=== PATIENT | male | born 2000 | race Two or more races ===

== ENCOUNTER 2021-11-18 22:34 | Emergency (ER) | payer MEDICAID, SELFPAY ==
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
[2021-11-18 23:20] VITALS: BP 149/83; PULSE 82; RESP 18; TEMP 36.6; O2SAT 98; BMI 44.4
[2021-11-18] MEDS: Ibuprofen 600 MG TABLET PO (23:55)
[2021-11-18] MEDS: diazePAM 2 MG TABLET 5 MG PO (23:56)
[2021-11-19] MEDS: diazePAM 2 MG TABLET PO (00:11)
--- NOTE | 2021-11-19 00:12 | PC.NURSE ---
Collar cleared per Dr Lincoln
== END 2021-11-19 01:24 | disposition home or self-care (01) ==
PROVIDERS: Emergency Provider Emergency Medicine
DX: S13.4XXA Sprain of ligaments of cervical spine, initial encounter (principal); S29.012A Strain of muscle and tendon of back wall of thorax, initial encounter; S39.012A Strain of muscle, fascia and tendon of lower back, initial encounter; S60.221A Contusion of right hand, initial encounter; V43.52XA Car driver injured in collision with other type car in traffic accident, initial encounter; Y93.89 Activity, other specified; Y92.414 Local residential or business street as the place of occurrence of the external cause; Y99.9 Unspecified external cause status
CPT/HCPCS: 71046; 72100; 72125; 73110; 73130; 99283; 99284

== ENCOUNTER 2023-07-14 15:31 | Emergency (ER) | payer MEDICAID, SELFPAY ==
[2023-07-14 15:44] VITALS: BP 137/78; PULSE 96; RESP 18; TEMP 36; O2SAT 96; BMI 37.3
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
[2023-07-14 15:59] VITALS: BP 137/78; PULSE 96; RESP 18; TEMP 35.9; O2SAT 96
== END 2023-07-14 16:01 | disposition home or self-care (01) ==
PROVIDERS: Emergency Provider Emergency Medicine Emergency Medical Services
DX: T21.03XA Burn of unspecified degree of upper back, initial encounter (principal); X19.XXXA Contact with other heat and hot substances, initial encounter; Y93.9 Activity, unspecified; Y92.9 Unspecified place or not applicable; Y99.9 Unspecified external cause status
CPT/HCPCS: 99282; 99283

== ENCOUNTER 2024-01-01 09:08 | Emergency (ER) | payer MEDICAID, SELFPAY ==
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
[2024-01-01 09:19] VITALS: BP 125/76; PULSE 88; RESP 18; TEMP 36.4; O2SAT 98; BMI 38.9
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
[2024-01-01] MEDS: Ketorolac Tromethamine 15 MG/ML VIAL IM (11:24)
[2024-01-01 11:26] VITALS: BP 141/85; PULSE 76; RESP 17; TEMP 36.6; O2SAT 100
== END 2024-01-01 11:27 | disposition home or self-care (01) ==
PROVIDERS: Emergency Provider Emergency Medicine
DX: M25.512 Pain in left shoulder (principal)
CPT/HCPCS: 73030; 96372; 99283; 99284; J1885